=== PATIENT | female | born 1980 ===

== ENCOUNTER 2023-12-17 23:13 | Emergency (ER) | payer SELFPAY ==
[~2023-12-17] VITALS: Ht 160 cm; Wt 65.8 kg
[2023-12-17 23:55] LABS: BILIRUBIN Negative (Negative); BLOOD Negative (Negative); CLARITY Clear (Clear); COLOR Yellow (Yellow); GLUCOSE Negative (Negative); KETONE Negative (Negative); LEUKO ESTERASE Trace (Negative); NITRITE Negative (Negative); PH 5.5 (4.5-8.0); SPECIFIC GRAVITY 1.025 (1.001-1.030)
[2023-12-18 00:08] LABS: EPITHELIAL CELLS 21-30
== END 2023-12-18 02:20 | disposition home or self-care (01) ==
LOC: ED 23:13 → EDBD 23:19 → ED 23:19
PROVIDERS: Internal Medicine
DX: N83.201 Unspecified ovarian cyst, right side (principal)

== ENCOUNTER 2025-03-08 09:42 | Emergency (ER) | payer SELFPAY ==
[~2025-03-08] VITALS: Wt 68.0 kg
[2025-03-08] MEDS ORDERED: Ondansetron Hydrochloride 4 MG/2 ML VIAL IV ONE (10:10)
[2025-03-08 10:43] LABS: BASO # 0.0 10*3/uL (0.0-0.1); BASO % 0.6 % (0.0-1.0); EOS # 0.2 10*3/uL (0.0-0.4); EOS % 3.5 % (1.0-4.0); MEAN CELL VOLUME 89.4 fl (81.0-99.0); MEAN CORPUSCULAR HGB 28.6 pg (27.0-31.0); MEAN PLATELET VOLUME 10.7 fl (9.6-12.3); MONO # 0.5 10*3/uL (0.1-1.0); MONO % 7.1 % (3.0-9.0); NEUT # 3.7 10*3/uL (2.3-7.9); NEUT % 53.9 % (47.0-73.0); NUCLEATED RED BLOOD CELL 0.0 % (0.0-0.0); NUCLEATED RED BLOOD CELL 0.0 10*3/uL (0.0-0.0); PLATELET COUNT AUTOMATED 259 10*3/uL (130-400); RED CELL DISTRI WIDTH 13.3 % (0-14.5)
[2025-03-08 10:43] LABS: BILIRUBIN Negative (Negative); BLOOD Negative (Negative); CLARITY Clear (Clear); COLOR Yellow (Yellow); KETONE Negative (Negative); LEUKO ESTERASE Negative (Negative); NITRITE Negative (Negative); PH 5.5 (4.5-8.0); SPECIFIC GRAVITY 1.020 (1.001-1.030); UROBILINOGEN 0.2 E.U./dl (0.0-1.0)
[2025-03-08 11:02] LABS: BACTERIA TRACE; WBC 0-2 wbc/hpf (0-5)
[2025-03-08 11:06] LABS: BUN 10 mg/dl (9-23)
[2025-03-08] MEDS ORDERED: Ondansetron4 MG PO (12:07)
[2025-03-08] MEDS ORDERED: TRAMADOL HCL50 MG PO (12:07)
== END 2025-03-08 17:46 | disposition home or self-care (01) ==
LOC: ED 09:42
PROVIDERS: Emergency Medicine
DX: N83.201 Unspecified ovarian cyst, right side (principal); D25.2 Subserosal leiomyoma of uterus; R35.0 Frequency of micturition; Z87.42 Personal history of other diseases of the female genital tract

== ENCOUNTER 2025-04-14 08:31 | Emergency (ER) | payer SELFPAY ==
[~2025-04-14] VITALS: Ht 160 cm
[~2025-04-14 08:31] MED LIST: Ondansetron4 MG PO; TRAMADOL HCL50 MG PO
[2025-04-14 10:53] LABS: BILIRUBIN Negative (Negative); BLOOD Negative (Negative); CLARITY Clear (Clear); COLOR Yellow (Yellow); KETONE Negative (Negative); LEUKO ESTERASE Negative (Negative); NITRITE Negative (Negative); PH 6.0 (4.5-8.0); SPECIFIC GRAVITY 1.010 (1.001-1.030); UROBILINOGEN 0.2 E.U./dl (0.0-1.0)
[2025-04-14 11:01] LABS: EPITHELIAL CELLS 0-2; RBC 0-2 rbc/hpf (0-2)
[2025-04-14] MEDS ORDERED: TRAMADOL HCL50 MG PO (11:22)
[2025-04-14] MEDS ORDERED: NAPROSYN500 MG PO (11:22)
== END 2025-04-14 11:37 | disposition home or self-care (01) ==
LOC: ED 08:31
PROVIDERS: Emergency Medicine
DX: N83.201 Unspecified ovarian cyst, right side (principal); D25.9 Leiomyoma of uterus, unspecified; Z79.899 Other long term (current) drug therapy